=== PATIENT | male | born 1945 | race Caucasian/White ===

== ENCOUNTER 2020-02-19 07:17 | Day surgery (SDC) | payer OTHER ==
[~2020-02-19] VITALS: Ht 167.6 cm; Wt 74.8 kg
[2020-02-19] MEDS ORDERED: CEFAZOLIN 1 GM IVPB PREMIX 50 ML IV ONE (08:00)
[2020-02-19] MEDS ORDERED: D5/0.45 NS 1,000 ML IV SCH (11:27)
[2020-02-19] MEDS ORDERED: HYDROcodone/ACETAMIN 5-325 MG TAB (NORCO/ VICODIN) PO PRN ×2 (11:30)
[2020-02-19] MEDS ORDERED: HYDROmorphone 1 MG INJ. 1 MG/ML AMPUL IVP PRN ×2 (11:30→12:00)
[2020-02-19] MEDS ORDERED: HYDROmorphone 2 MG/ML VIAL ONE (11:55)
[2020-02-19] MEDS ORDERED: BUPIVACAINE /PF 0.25% 30 ML VIAL INJ ONE (11:55)
[2020-02-19] MEDS ORDERED: ROCURONIUM BROMIDE 10 MG/ML (ZEMURON) ONE (11:55)
[2020-02-19] MEDS ORDERED: MIDAZOLAM HCL 5 MG/ML VIAL (VERSED) IV ONE (11:55)
[2020-02-19] MEDS ORDERED: PROPOFOL 200MG/ 20ML VIAL (DIPRIVAN) IV ONE (11:55)
[2020-02-19] MEDS ORDERED: ONDANSETRON HCL 4 MG/2 ML VIAL ONE (11:55)
[2020-02-19] MEDS ORDERED: GLYCOPYRROLATE 0.2 MG/ML VIAL ONE (11:55)
[2020-02-19] MEDS ORDERED: SUCCINYLCHOLINE CHLORIDE 20 MG/ML(QUELICIN) ONE (11:55)
[2020-02-19] MEDS ORDERED: KETOROLAC TROMETHAMINE 30 MG VIAL ONE (11:55)
[2020-02-19] MEDS ORDERED: NS IRRIG SOLN 1000 ML IR ONE (11:55)
[2020-02-19] MEDS ORDERED: LR 1,000 ML IV.SOLN IV ONE (11:55)
[2020-02-19] MEDS ORDERED: METOCLOPRAMIDE HCL 10 MG/2 ML VIAL ONE (11:55)
[2020-02-19] MEDS ORDERED: CEFAZOLIN 2 GM IVPB PREMIX 50 ML IV ONE (11:55)
[2020-02-19] MEDS ORDERED: SEVOFLURANE 15 MIN GAS INH ONE (11:55)
[2020-02-19] MEDS ORDERED: LR 1,000 ML IV SCH (11:58)
[2020-02-19] MEDS ORDERED: ePHEDrine sulfate 50 MG/ML VIAL IVP PRN (12:00)
[2020-02-19] MEDS ORDERED: DILTIAZEM HCL 25 MG/5 ML VIAL IVP PRN (12:00)
[2020-02-19] MEDS ORDERED: MIDAZOLAM HCL 5 MG/5 ML VIAL IVP PRN (12:00)
[2020-02-19] MEDS ORDERED: HYDROmorphone 2 MG/ML VIAL IVP PRN ×2 (12:00)
[2020-02-19] MEDS ORDERED: MEPERIDINE HCL/PF 25 MG/ML DISP.SYRIN IVP PRN (12:00)
[2020-02-19] MEDS ORDERED: NALOXONE HCL 0.4 MG/ML AMP (NARCAN) IVP PRN (12:00)
[2020-02-19 12:54] VITALS: BP_SYST 128
== END 2020-02-19 14:15 | disposition home or self-care (01) ==
LOC: SDS 07:17 → SMU 07:17 → EDBD 10:50 → EDSTATUS 10:50 → SDS 14:15
PROVIDERS: ATTEND Colon & Rectal Surgery
DX: C43.59 Malignant melanoma of other part of trunk (principal); I10 Essential (primary) hypertension; Z79.899 Other long term (current) drug therapy; Z88.8 Allergy status to other drugs, medicaments and biological substances
CPT/HCPCS: 14000; 78195; 88305; A9541; J0330; J0690 ×2; J1170; J1885; J2250; J2405; J2704; J2765; J3490 ×2; J7120; U0002

== ENCOUNTER 2021-07-29 12:16 | Inpatient (IN) | payer OTHER, SELFPAY ==
[~2021-07-29] VITALS: Ht 167.6 cm; Wt 75.5 kg
--- NOTE | 2021-07-29 12:20 | NUR ---
PT CAME IN FROM HOME C/O SOB FOR ABOUT 2 WEEKS. STATES THIS AM AROUND 0400 HE USED HIS ALBUTEROL INHALER WITHOUT RELIEF. REPORTS HE HAS BEEN SLEEPING UPRIGHT IN A RECLINER FOR 2 WEEKS DUE TO INABILITY TO TOLERATE LAYING FLAT IN BED. PT ALSO REPORTS SWELLING IN BOTH FEET. PT IS AMBULATORY, AAOX4, V/S STABLE
[2021-07-29 12:27] VITALS: BP_SYST 161
--- NOTE | 2021-07-29 12:32 | NUR ---
ER DR. VELOZ AT THE BEDSIDE EXAMINING PT
[2021-07-29] MEDS ORDERED: FUROSEMIDE 40 MG/4 ML VIAL IVP ONE (12:45)
[2021-07-29] MEDS ORDERED: IBUP-1017 PO (12:45)
[2021-07-29] MEDS ORDERED: NITROGLYCERIN 1 INCH (GM) OINT. TD ONE (12:45)
[2021-07-29] MEDS ORDERED: AMLO5TAB4 PO (12:45)
[2021-07-29] MEDS ORDERED: ACYC400T19 PO (12:45)
[2021-07-29] MEDS ORDERED: DICL75TA5 PO (12:45)
[2021-07-29] MEDS ORDERED: HYDR25TA4 PO (12:45)
[2021-07-29] MEDS ORDERED: HYDR-4038 PO (12:45)
[2021-07-29] MEDS ORDERED: PRAV20TA PO (12:45)
[2021-07-29] MEDS ORDERED: ASPI-524 PO (12:45)
[2021-07-29] MEDS ORDERED: METO50TA7 PO (12:45)
[2021-07-29] MEDS ORDERED: BENA20TA9 PO (12:45)
[2021-07-29] MEDS ORDERED: PANT40TA45 PO (12:45)
--- NOTE | 2021-07-29 12:45 | NUR ---
# 18 gauge angiocath placed to RFA. Use of asceptic technique. Opsite placed over site. Blood return noted. Blood for lab drawn from site. Flushed with 10 cc of normal saline. No evidence of infiltration noted. Patient tolerated well.
--- NOTE | 2021-07-29 12:46 | NUR ---
Medication reconciliation completed with information provided by PT. Any prior medication reconciliation on file was reviewed and corrected.
[2021-07-29 13:03] LABS: BASOPHILS % (AUTO) 0.3 % (0.0-2.0); EOSINOPHILS % (AUTO) 0.6 % (0.0-4.0); HEMATOCRIT 45.6 % (36-54); HEMOGLOBIN 15.6 g/dL (14.0-18.0); LYMPHOCYTES # (AUTO) 0.6 K/uL (1.0-5.5); LYMPHOCYTES % (AUTO) 7.3 % (20.5-51.5); MEAN CORPUSCULAR HEMOGLOBIN 33 pg (27-31); MEAN CORPUSCULAR HGB CONC 34 % (32-36); MEAN CORPUSCULAR VOLUME 96 fL (79.0-98.0); MONOCYTES % (AUTO) 12.1 % (1.7-9.3); NEUTROPHILS # (AUTO) 6.5 K/uL (1.8-7.7); NEUTROPHILS % (AUTO) 79.7 % (40.0-70.0); PLATELET COUNT (AUTO) 195 K/uL (130-430); RED BLOOD CELL COUNT(AUTO) 4.77 MIL/uL (4.2-6.2); RED CELL DISTRIBUTION WIDTH 12.9 % (9.0-15.0); WHITE BLOOD COUNT (AUTO) 8.1 K/uL (4.8-10.8)
[2021-07-29 13:17] LABS: ANION GAP 9 (5-15); CALCIUM 8.6 mg/dL (8.4-11.0); CHLORIDE 103 mmol/L (98-107); CREATININE 0.95 mg/dL (0.55-1.30); GLUCOSE 82 mg/dL (70-99); POTASSIUM 3.6 mmol/L (3.5-5.1); SODIUM SERUM 139 mmol/L (136-145); UREA NITROGEN, BLOOD 18 mg/dL (8-21)
--- NOTE | 2021-07-29 13:20 | NUR ---
PT SITTING UP IN GURNEY, SLEEPING, EVEN, UNLABORED RESPORTATIONS, V/S STABLE, NO DISTRESS NOTED
[2021-07-29 13:23] LABS: ALANINE AMINOTRANSFERASE 42 U/L (12-78); ASPARTATE AMINOTRANSFERASE 42 U/L (10-37); TOTAL BILIRUBIN 0.7 mg/dL (0.0-1.0)
--- NOTE | 2021-07-29 13:50 | NUR ---
PT VOIDED 600ML CLEAR, YELLOW URINE IN URINAL, EMPTIED AND RETURNED TO BEDSIDE
[2021-07-29] MEDS ORDERED: IPRATROPIUM/ALBUTEROL SULFATE 3 ML AMPUL.NEB (DUONEB) INH ONE (14:00)
[2021-07-29] MEDS ORDERED: MORPHINE 2 MG/ML INJ. SYRINGE IVP ONE (14:00)
[2021-07-29] MEDS ORDERED: IPRATROPIUM/ALBUTEROL SULFATE 3 ML AMPUL.NEB (DUONEB) ONE (14:02)
--- NOTE | 2021-07-29 14:05 | NUR ---
PT REPORTS HAVING SUDDEN SHARP LEFT SIDED CHEST PAIN. MD MADE AWARE
[2021-07-29] MEDS ORDERED: IOHEXOL 350 mgI/mL, 150 ML INFUS..BTL IV ONE (14:37)
--- NOTE | 2021-07-29 14:42 | NUR ---
Patient transported to radiology via WC, accompanied by STAFF.
[2021-07-29] MEDS ORDERED: IPRATROPIUM BROM 0.5 MG/2.5 ML VIAL.NEB (ATROVENT) INH PRN (15:00)
[2021-07-29] MEDS ORDERED: ALBUTEROL SULFATE 0.083% 2.5 MG/3 ML VIAL.NEB INH PRN (15:00)
--- NOTE | 2021-07-29 15:59 | NUR ---
PT AMBULATES TO BATHROOM WITH STEADY GAIT
--- NOTE | 2021-07-29 16:00 | NUR ---
400ML CLEAR YELLOW URINE EMPTIED FROM BEDSIDE URINAL
--- NOTE | 2021-07-29 16:35 | NUR ---
PT C/O SOB, 02 SAT 94%, SHALLOW BREATHS, COUGH. RT CALLED FOR BREATHING TX
--- NOTE | 2021-07-29 16:40 | NUR ---
RT AT THE BEDSIDE FOR BREATHING TX
[2021-07-29] MEDS: ALBUTEROL SULFATE 0.083% 2.5 MG/3 ML VIAL.NEB INH SCH ×2 (16:42→21:53)
[2021-07-29] MEDS: IPRATROPIUM BROM 0.5 MG/2.5 ML VIAL.NEB (ATROVENT) INH SCH ×2 (16:42→21:53)
[2021-07-29 17:53] VITALS: BP_SYST 158
--- NOTE | 2021-07-29 18:10 | NUR ---
DINNER TRAY PROVIDED TO PT
--- NOTE | 2021-07-29 19:15 | NUR ---
REPORT GIVEN TO GIOVANNA MORGAN FOR CONTINUING CARE
--- NOTE | 2021-07-29 19:36 | NUR ---
Assumed total care of patient. Patient AAO x4 sitting upright in [facility], visiting with family. Both patient and family updated on plan of care. Patient reports left sided chest pain 3/10 which as improved over the past couple hours from receiving a breathing treatment. Patient is breathing even and unlabored, VSS, no signs of acute distress noted. Patient IV site patent. No signs of infiltration noted. Will continue to monitor.
--- NOTE | 2021-07-29 20:30 | NUR ---
Patient is going to room 114B
--- NOTE | 2021-07-29 20:45 | NUR ---
Transfer to TELE via ACLS protocol. Licensed nurse present. IV present no signs or symptoms of infiltration.
--- NOTE | 2021-07-29 21:08 | NUR ---
ADMIT NOTE Received pt from ER with a diagnosis of CHF, received report from GIOVANNA Yarbrough . Admission process initiated. patient oriented to pain management, safety and call light-teach back done.
[2021-07-29 21:30] VITALS: BP_SYST 141
[2021-07-29] MEDS: FUROSEMIDE 40 MG/4 ML VIAL IVP SCH (22:57)
--- NOTE | 2021-07-29 22:57 | NUR ---
med Lasix, IVP was administered. Reviewed side effects and he verbalized understanding.
--- NOTE | 2021-07-29 23:30 | NUR ---
Recliner chair Patient reports that he sleeps better on chair and provided with recliner chair; brakes locked and call light w/in reach.
[2021-07-30 01:15] VITALS: BP_SYST 160
--- NOTE | 2021-07-30 04:09 | NUR ---
Consultation Paged Reason for Consultation: CHF Was consult called: Y Person who was notified: Christiana Consulting Physician: Dr. Kim Ordering Physician: Dr. Headley
[2021-07-30 06:50] LABS: BASOPHILS % (AUTO) 0.4 % (0.0-2.0); EOSINOPHILS % (AUTO) 0.5 % (0.0-4.0); HEMATOCRIT 46.2 % (36-54); HEMOGLOBIN 15.7 g/dL (14.0-18.0); LYMPHOCYTES # (AUTO) 0.5 K/uL (1.0-5.5); LYMPHOCYTES % (AUTO) 6.7 % (20.5-51.5); MEAN CORPUSCULAR HEMOGLOBIN 33 pg (27-31); MEAN CORPUSCULAR HGB CONC 34 % (32-36); MEAN CORPUSCULAR VOLUME 96 fL (79.0-98.0); MONOCYTES % (AUTO) 13.5 % (1.7-9.3); NEUTROPHILS # (AUTO) 5.9 K/uL (1.8-7.7); NEUTROPHILS % (AUTO) 78.9 % (40.0-70.0); PLATELET COUNT (AUTO) 188 K/uL (130-430); RED BLOOD CELL COUNT(AUTO) 4.82 MIL/uL (4.2-6.2); RED CELL DISTRIBUTION WIDTH 12.7 % (9.0-15.0); WHITE BLOOD COUNT (AUTO) 7.4 K/uL (4.8-10.8)
--- NOTE | 2021-07-30 07:42 | NUR ---
OPENING NOTE Received report from night nurse. Patient is alert and oriented x4. Sitting up in recliner. On room air and tolerating well with no signs of shortness of breath noted. IV is patent, saline locked. Bed locked and in lowest position. Call light within reach. Will continue to monitor.
[2021-07-30 08:00] VITALS: BP_SYST 150
[2021-07-30] MEDS: METOPROLOL SUCCINATE 50 MG TAB.SR.24H (TOPROL XL) PO SCH (08:06)
[2021-07-30] MEDS: ASPIRIN 81 MG TAB.CHEW PO SCH (08:07)
[2021-07-30] MEDS: lisinopriL 20 MG TABLET PO SCH (08:07)
[2021-07-30] MEDS: ATORVASTATIN 10 MG TABLET PO SCH (08:07)
[2021-07-30] MEDS: FUROSEMIDE 40 MG/4 ML VIAL IVP SCH (08:08)
[2021-07-30] MEDS: hydrALAZINE HCL 25 MG TABLET PO SCH (08:08)
[2021-07-30] MEDS: PANTOPRAZOLE SODIUM 40 MG TAB PO SCH (08:08)
[2021-07-30] MEDS: ALBUTEROL SULFATE 0.083% 2.5 MG/3 ML VIAL.NEB INH SCH ×3 (08:23→23:57)
[2021-07-30] MEDS: IPRATROPIUM BROM 0.5 MG/2.5 ML VIAL.NEB (ATROVENT) INH SCH ×3 (08:23→23:57)
[2021-07-30] MEDS ORDERED: BENAZEPRIL HCL 20 MG TABLET (LOTENSIN) PO SCH (09:00)
[2021-07-30] MEDS ORDERED: amLODIPine BESYLATE 5 MG TABLET PO SCH (09:00)
[2021-07-30] MEDS ORDERED: hydrALAZINE HCL 25 MG TABLET PO SCH (09:00)
[2021-07-30] MEDS ORDERED: PRAVASTATIN SODIUM 20 MG TABLET (PRAVACHOL) PO SCH (09:00)
[2021-07-30 11:19] LABS: BILIRUBIN,URINE NEGATIVE (NEGATIVE); BLOOD, URINE NEGATIVE (NEGATIVE); CLARITY/URINE CLEAR (CLEAR); COLOR,URINE YELLOW (YELLOW); GLUCOSE,URINE NEGATIVE (NEGATIVE); KETONES,URINE NEGATIVE (NEGATIVE); LEUKOCYTE ESTERASE ,URINE NEGATIVE (NEGATIVE); NITRITE, URINE NEGATIVE (NEGATIVE); PH,URINE 7.5 (5.0-8.0); PROTEIN URINE NEGATIVE (NEGATIVE); UROBILINOGEN,URINE 0.2 (0.2-1.0)
[2021-07-30 13:10] VITALS: BP_SYST 139
--- NOTE | 2021-07-30 13:23 | NUR ---
RN NOTE PATIENT ATE 100% OF DINNER. ON ROOM AIR AND TOLERATING WELL. VITALS ARE STABLE. AT BEDSIDE. WILL CONTINUE TO MONITOR.
[2021-07-30] MEDS ORDERED: HYDROcodone/ACETAMIN 5-325 MG TAB (NORCO/ VICODIN) ONE (18:06)
--- NOTE | 2021-07-30 19:54 | NUR ---
paged paged doctor moore
--- NOTE | 2021-07-30 19:57 | NUR ---
Chest pain - Dr. Kim Notified patient reporting CP, left side, under breast. Reported V/S 155/92 HR 95 and 95% 2L NC, RT at bedside giving breathing treatment; He provided medication order for Nitro 0.4mg sublingual; TORB
[2021-07-30 20:00] VITALS: BP_SYST 155
[2021-07-31] MEDS: HYDROcodone/ACETAMIN 5-325 MG TAB (NORCO/ VICODIN) PO PRN ×4 (00:51→20:31)
[2021-07-31 01:50] VITALS: BP_SYST 145
[2021-07-31] MEDS: ALBUTEROL SULFATE 0.083% 2.5 MG/3 ML VIAL.NEB INH SCH ×4 (03:00→14:41)
[2021-07-31] MEDS: IPRATROPIUM BROM 0.5 MG/2.5 ML VIAL.NEB (ATROVENT) INH SCH ×4 (03:00→14:41)
[2021-07-31 06:47] LABS: BASOPHILS % (AUTO) 0.5 % (0.0-2.0); EOSINOPHILS % (AUTO) 0.3 % (0.0-4.0); HEMATOCRIT 47.5 % (36-54); LYMPHOCYTES # (AUTO) 0.6 K/uL (1.0-5.5); LYMPHOCYTES % (AUTO) 7.8 % (20.5-51.5); MEAN CORPUSCULAR HEMOGLOBIN 32 pg (27-31); MEAN CORPUSCULAR HGB CONC 34 % (32-36); MEAN CORPUSCULAR VOLUME 96 fL (79.0-98.0); MONOCYTES # (AUTO) 1.1 K/uL (0.0-1.0); MONOCYTES % (AUTO) 14.3 % (1.7-9.3); NEUTROPHILS # (AUTO) 5.9 K/uL (1.8-7.7); NEUTROPHILS % (AUTO) 77.1 % (40.0-70.0); PLATELET COUNT (AUTO) 188 K/uL (130-430); RED BLOOD CELL COUNT(AUTO) 4.95 MIL/uL (4.2-6.2); RED CELL DISTRIBUTION WIDTH 13.1 % (9.0-15.0); WHITE BLOOD COUNT (AUTO) 7.6 K/uL (4.8-10.8)
[2021-07-31 07:29] LABS: ALANINE AMINOTRANSFERASE 31 U/L (12-78); ANION GAP 10 (5-15); ASPARTATE AMINOTRANSFERASE 25 U/L (10-37); CHLORIDE 99 mmol/L (98-107); CREATININE 0.87 mg/dL (0.55-1.30); GLUCOSE 101 mg/dL (70-99); POTASSIUM 3.2 mmol/L (3.5-5.1); SODIUM SERUM 137 mmol/L (136-145); TOTAL BILIRUBIN 1.2 mg/dL (0.0-1.0); UREA NITROGEN, BLOOD 17 mg/dL (8-21)
[2021-07-31 08:00] VITALS: BP_SYST 163
[2021-07-31] MEDS: METOPROLOL SUCCINATE 50 MG TAB.SR.24H (TOPROL XL) PO SCH (08:22)
[2021-07-31] MEDS: hydrALAZINE HCL 25 MG TABLET PO SCH (08:23)
[2021-07-31] MEDS: lisinopriL 20 MG TABLET PO SCH (08:23)
[2021-07-31] MEDS: ASPIRIN 81 MG TAB.CHEW PO SCH (08:23)
[2021-07-31] MEDS: ATORVASTATIN 10 MG TABLET PO SCH (08:23)
[2021-07-31] MEDS: PANTOPRAZOLE SODIUM 40 MG TAB PO SCH (08:23)
[2021-07-31] MEDS: FUROSEMIDE 40 MG/4 ML VIAL IVP SCH (08:24)
[2021-07-31] MEDS ORDERED: NITROGLYCERIN 0.4 MG TAB.SUBL SL PRN (09:45)
--- NOTE | 2021-07-31 16:24 | NUR ---
RN NOTE Patient complaining of back pain. [place] PO given. Informed Dr. Kim of K of 3.2. Said he will input orders. Will follow up with new orders.
[2021-07-31] MEDS ORDERED: POTASSIUM CHLORIDE 20 MEQ TAB.PRT.SR PO ONE (16:30)
--- NOTE | 2021-07-31 18:40 | NUR ---
CLOSING NOTE Patient is resting in bed. On room air and tolerating well with no signs of shortness of breath noted. IV is patent, saline locked. Bed locked and in lowest position. Call light within reach. Will endorse to night nurse.
--- NOTE | 2021-07-31 19:30 | NUR ---
CHANGE OF SHIFT; endorsed by day shift, DX CHF. no distress. call light at bedside.
[2021-07-31 20:30] VITALS: BP_SYST 152
--- NOTE | 2021-07-31 20:31 | NUR ---
NOTES: VS checked. just had a breathing treatment. HOB elevated, kept O2 @ 2 liters per nasal cannula for comfort. IV lock on rt. forearm. rail setter shows sinus rhythm. moves all extremities. BLE remain swollen, keep bed elevated. medicated with [place] for c/o lower back pain, repositioned self. call light within reach.
--- NOTE | 2021-07-31 22:00 | NUR ---
NOTES: noted relief from pain.
--- NOTE | 2021-08-01 00:15 | NUR ---
NOTES: pt. sleeping when checked, no distress. turn to sides and repositioned self.
[2021-08-01 01:10] VITALS: BP_SYST 149
--- NOTE | 2021-08-01 04:00 | NUR ---
NOTES: pt. remain sleeping. condition unchanged, continue to monitor.
[2021-08-01] MEDS: HYDROcodone/ACETAMIN 5-325 MG TAB (NORCO/ VICODIN) PO PRN (06:48)
--- NOTE | 2021-08-01 06:49 | NUR ---
CLOSING NOTES; PT. MEDICATED FOR C/O LOWER BACK PAIN, PT. VERY ANXIOUS, NOTED ALSO SOME CHEST DISCOMFORT. iIV LOCK PATENT. VOIDED PER URINAL. KEPT O2 ON. FOR FURTHER CARE AND ASSISTANCE. WILL ENDORSE TO INCOMING SHIFT.
[2021-08-01] MEDS: ALBUTEROL SULFATE 0.083% 2.5 MG/3 ML VIAL.NEB INH SCH ×2 (07:42→11:41)
[2021-08-01] MEDS: IPRATROPIUM BROM 0.5 MG/2.5 ML VIAL.NEB (ATROVENT) INH SCH ×2 (07:42→11:41)
--- NOTE | 2021-08-01 07:45 | NUR ---
Initial Note Patient awake and oriented x 4, sitting up in chair. States pain 4/10 to back, relieved with pain medication received prior. O2 saturation 100% on 2 L via N/C. Respiratory rate 26. Instructed on deep breathing exercises. Bilateral lower extremities with pitting edema. Patient educated on elevation of extremities to reduce edema. Left call light and bedside table within reach, encouraged to call.
--- NOTE | 2021-08-01 07:55 | NUR ---
MD Rounds Dr. Kim at bedside, aware of potassium level 3.2.
[2021-08-01 08:00] VITALS: BP_SYST 155
[2021-08-01] MEDS: ATORVASTATIN 10 MG TABLET PO SCH (08:56)
[2021-08-01] MEDS: lisinopriL 20 MG TABLET PO SCH (08:59)
[2021-08-01] MEDS: METOPROLOL SUCCINATE 50 MG TAB.SR.24H (TOPROL XL) PO SCH (08:59)
[2021-08-01] MEDS: hydrALAZINE HCL 25 MG TABLET PO SCH (09:00)
[2021-08-01] MEDS: PANTOPRAZOLE SODIUM 40 MG TAB PO SCH (09:00)
[2021-08-01] MEDS ORDERED: POTASSIUM CHLORIDE 10 MEQ TAB.PRT.SR PO ONE (09:00)
[2021-08-01] MEDS: ASPIRIN 81 MG TAB.CHEW PO SCH (09:00)
[2021-08-01] MEDS ORDERED: FUROSEMIDE 40 MG TABLET PO SCH (09:00)
[2021-08-01] MEDS ORDERED: LORazepam 1 MG TABLET PO PRN (10:45)
[2021-08-01] MEDS ORDERED: ACYCLOVIR 400 MG TABLET PO ONE (10:45)
[2021-08-01] MEDS ORDERED: prednisoLONE 1% OPHTHALMIC SUSPN 5 ML OP ONE (10:45)
[2021-08-01 11:06] VITALS: BP_SYST 155
[2021-08-01] MEDS ORDERED: FURO-149 PO (11:44)
[2021-08-01 11:58] VITALS: BP_SYST 133
[2021-08-01 12:08] VITALS: BP_SYST 139
--- NOTE | 2021-08-01 13:25 | NUR ---
D/C Patient Patient given medication reconciliation form and D/C instructions. Exit Care provided. Patient verbalized understanding. MD discussed with patient the results and treatment provided. Ambulatory with steady gait for discharge to home. Patient in stable condition, ID band removed. IV catheter removed, intact and dressing applied, no active bleeding. Rx of Furosemide sent to preferred pharmacy. Patient educated on pain and symptom management. All belongings sent with patient.
--- NOTE | 2021-08-01 13:49 | NUR ---
Nutrition Note Pt was due to be seen for high risk Nutrition Assessment today. RD Notification/nursing trigger received 07/29/21 5416 d/t unspecified nutritional problem. RD met w/ pt at bedside, son was present as well. Pt was on his way out/pending D/C home. RD offered heart-healthy nutrition education, however, pt's son stated that pt has a [id number] who is a dietitian and can provide education for him at home. Nutrition Assessment deferred.
[2021-08-01] MEDS ORDERED: ACYCLOVIR 400 MG TABLET PO SCH (21:00)
[2021-08-02] MEDS ORDERED: prednisoLONE 1% OPHTHALMIC SUSPN 5 ML OP SCH (09:00)
== END 2021-08-01 13:25 | disposition home or self-care (01) | DRG 291 ==
LOC: SED 12:16 → STU 14:01
PROVIDERS: ADMIT Internal Medicine Hospice and Palliative Medicine; ATTEND Internal Medicine Hospice and Palliative Medicine
DX: I11.0 Hypertensive heart disease with heart failure (principal); I50.31 Acute diastolic (congestive) heart failure; C43.9 Malignant melanoma of skin, unspecified; I25.10 Atherosclerotic heart disease of native coronary artery without angina pectoris; Z20.822 Contact with and (suspected) exposure to COVID-19; I25.2 Old myocardial infarction; Z85.820 Personal history of malignant melanoma of skin; Z87.891 Personal history of nicotine dependence; Z95.5 Presence of coronary angioplasty implant and graft
CPT/HCPCS: 36415; 71045; 71275; 76376; 80053; 81003; 83880; 84484; 85025; 85379; 93005; 93306; 93970; 94640; 94760; 96374; 96375; 99291; G0378; J1940; J2270; J7613; Q9967